=== PATIENT | female | born 1985 | race Two or more races ===

== ENCOUNTER 2023-08-23 17:34 | Emergency (ER) | payer OTHER ==
[~2023-08-23] VITALS: Ht 167.6 cm; Wt 68.0 kg
[2023-08-23 20:31] LABS: HEMATOCRIT 37.5 % (36.0-45.00); HEMOGLOBIN 12.5 g/dL (12.0-15.00); MEAN CELL VOLUME 77.8 fL (80.00-100.00); MEAN CORPUSCULAR HEMOGLOBIN 25.8 pg (27.00-32.0); MEAN CORPUSCULAR HGB CONC 33.2 g/dl (32.0-36.0); PLATELET COUNT 352 K/uL (150-450); RED BLOOD COUNT 4.82 M/uL (4.00-6.00); RED CELL DISTRIBUTION WIDTH 15.9 % (11.5-14.5)
[2023-08-23 20:41] LABS: ERYTHROCYTE SEDIMENTATION RATE 25 mm/hr
[2023-08-23 20:51] LABS: ANION GAP 10 (10.0-20.0); BLOOD UREA NITROGEN 12 mg/dL (7-18); BUN CREA RATIO 17 (7.0-25.0); CALCIUM 9.1 mg/dL (8.5-10.1); CARBON DIOXIDE 26 mEq/L (21-32); CHLORIDE 106 mmol/L (98-107); GFR 93.16; GLUCOSE FASTING 94 mg/dL (65-100); OSMOLALITY SERUM 275 MOSM/KG (275-295); POTASSIUM 3.61 mEq/L (3.5-5.1); SODIUM 138 mmol/L (136-145)
[2023-08-23 20:58] LABS: C-REACTIVE PROTEIN < 0.29 MG/DL (0.00-0.29); HCG QUANTITATIVE < 1 mUI/mL (1-3)
[2023-08-23] MEDS ORDERED: ENALAPRILAT DIHYDRATE 1.25 MG/ML VIAL IV PRN (23:45)
[2023-08-23] MEDS ORDERED: 0.9 % SODIUM CHLORIDE 100 ML IV SCH (23:45)
[2023-08-24] MEDS ORDERED: TRAMADOL HCL 50 MG TABLET PO SCH
[2023-08-24 00:32] LABS: BILIRUBIN TOTAL 0.43 mg/dL (0.3-1.2); CALCIUM 9.1 mg/dL (8.5-10.1); CREATININE SERUM 0.69 mg/dL (0.55-1.02); GFR 94.72; GLOBULINA 4.1 G/DL (2.4-3.5); POTASSIUM 3.71 mEq/L (3.5-5.1); TOTAL PROTEIN 8.1 gm/dL (6.4-8.2)
[2023-08-24 00:35] LABS: INR 1.1; PROTHROMBIN TIME 11.5 SECONDS (9.0-11.5)
[2023-08-24] MEDS ORDERED: NIMODIPINE 30 MG CAPSULE PO SCH (01:00)
[2023-08-24] MEDS ORDERED: ORPHENADRINE CITRATE 30 MG/ML AMPUL IM STA (08:28)
== END 2023-08-24 13:26 | disposition home or self-care (01) ==
LOC: ER 17:34
PROVIDERS: General Practice
DX: G43.509 Persistent migraine aura without cerebral infarction, not intractable, without status migrainosus (principal)
CPT/HCPCS: 70544; 70545; 70552